=== PATIENT | male | born 2000 | race Caucasian/White ===

== ENCOUNTER 2025-04-10 21:51 | Emergency (ER) | payer OTHER, SELFPAY ==
--- OUTSIDE RECORDS SUMMARY | 2025-04-10 21:53 | XMS_ITS | Clinical Summary ---
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 Gender Identity Not on file Sexual Orientation Not on file Last Filed Vital Signs Vital Sign Reading Time Taken Comments Blood Pressure 128/74 07/07/2019 1:25 PM TECHNICAL SERVICES LIBRARIAN Pulse 68 05/11/2019 1:22 PM CDT Temperature - - Respiratory Rate 18 05/11/2019 1:22 PM CDT Oxygen Saturation - - Inhaled Oxygen Concentration - - Weight - - Height - - Body Mass Index - - Plan of Treatment Health Maintenance Due Date Last Done Comments Dental Oral Exam 1998 Dental Recall 1998 HIV Screening 1998 Hepatitis B Vaccine (2 of 3 - 3-dose series) 02/28/1999 01/31/1999 Varicella Vaccines (1 of 2 - 13+ 2-dose series) 2011 HPV Immunization (1 - Male 3-dose series) 2013 Pneumococcal Combined 0-50 (1 of 2 - PCV) 2017 Dental X-Ray: Bitewings 05/12/2020 05/11/2019 Periodontal Charting 07/08/2020 07/07/2019, 07/07/20 Dental X-Ray: Full Mouth 05/12/2022 05/11/2019 COVID-19 Vaccine ( - season) 2024 Influenza Vaccine (#1) 2025 07/26/2010, 2008 DTaP,Tdap,and Td Vaccines (7 - Td or Tdap) 07/16/2026 07/16/2016, 03/10/2003, 09/12/2000, Additional history exists Zoster Vaccines (1 of 2) 2048 RSV Vaccines (1 - 1-dose 75+ series) 2073 HIB Vaccines Completed 09/12/2000, 01/16, 1998 POLIO VACCINES Completed 03/10/2003, 08/19, 01/31/1999, Additional history exists MENINGOCOCCAL VACCINES (MCV4) Aged Out 07/26/2010 No longer eligible based on patient's age to complete this topic Hepatitis A Vaccines Aged Out No long er eligible based on patient's age to complete this topic MENINGOCOCCAL VACCINES (MenB) Aged Out No longer eligible based on patient's age to complete this topic ROTAVIRUS VACCINES Aged Out No longer eligible based on patient's age to complete this topic Procedures Procedure Name Priority Date/Time Associated Diagnosis Comments ME COMP PERIODONTAL EVALUATION Routine 07/07/2019 1:00 PM TECHNICAL SERVICES LIBRARIAN ME INTRAOR COMPLETE FILM SERIES Routine 05/11/2019 1:00 PM CDT from Last 3 Months or Most Recently Relevant to Health Maintenance Insurance [employer]
[2025-04-10 21:56] VITALS: BP 131/96; PULSE 87; RESP 16; TEMP 36.6; O2SAT 97; BMI 19.0
[2025-04-10 22:29] VITALS: TEMP 36.6
[2025-04-10] MEDS: IBUPROFEN 400 MG TABLET 800 MG PO (22:29)
[2025-04-10] MEDS: FLUORESCEIN SODIUM TOPICAL STRIP 1 STRIP EYE-RIGHT (22:32)
[2025-04-10] MEDS: TETRACAINE 0.5% OPHTH 2 DROP EYE-RIGHT (22:33)
--- NOTE | 2025-04-10 22:45 | ED.EYEPROB ---
HPI - Eye Problem General Date Seen: 04/10/25 Chief complaint: Eye Problems Stated complaint: right eye injury Time Seen by Provider: 04/10/25 21:59 Source: patient Mode of arrival: ambulatory Limitations: no limitations History of Present Illness HPI Narrative: Patient is a very nice 24-year-old gentleman who presents here E was fishing in town, and bent over to take a bluegill off of his lying, and somehow poked himself in the right eye with a stick. He presents here for help, is able to drive to the ER, was not wearing contacts and does not were glasses. 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 chief complaint: eye pain and eye injury Onset (ago): minute(s) Onset description: sudden Duration: constant Location: right eye Eye Symptoms: burning, foreign body sensation and photophobia Place: street/outdoors Mechanism: direct trauma Severity: moderate If Pain, Quality: sharp Associated symptoms: none Treatments Prior to Arrival: none Related Data Patient tetanus UTD: No Home Medications ?Medication ?Instructions ?Recorded ?Confirmed No Known Home Medications 04/10/25 04/10/25 Allergies Allergy/AdvReac Type Severity Reaction Status Date / Time No Known Drug Allergies Allergy Verified 04/10/25 21:58 Review of Systems Status of ROS: Reports: 10 or more systems reviewed and unremarkable except as noted in History and below [facility] Medical History No significant past medical history Surgical History No significant past surgical history Social History Smoking Status: Never smoker Second hand tobacco smoke exposure: No How often do you have a drink containing alcohol: never AUDIT-C Alcohol total score: 0 Non-prescribed substance use: denies use Exam Narrative: Exam Narrative: On examination in room 4 he is pleasant he 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 Extraocular muscles are normal there is no lid swelling notable there is no foreign body noted. And I really see any evidence of open globe injury, no evidence of a hyphema. Tetracaine drops are used 2 drops in his right eye this helped his pain immensely, floor seen shows that he has a scratch across is high from 11 o'clock position to 5 o'clock position. There is no flap associated this in no gathering a for seen within it. Upper lid is everted and normal lower lid but lid is swept and normal. With no evidence of foreign body. He scores 20/30 both eyes when checked. Slit lamp was used Const: Vital Signs, click to edit/add: Vital Signs - 24 hr 04/10/25 21:56 04/10/25 22:29 Temperature 97.8 F 97.8 F Pulse Rate [Pulse Oximeter] 87 Respiratory Rate 16 Blood Pressure [Le ft Upper Arm] 131/96 H Pulse Oximetry 97 Oxygen Delivery Me thod Room Air Documenting provider has reviewed patient's vital signs: yes Course Vital Signs Vital signs: Initial Vital Signs Temperature 97.8 F 04/10/25 21:56 Temperature Source Temporal Artery Scan 04/10/25 21:56 Pulse Rate 87 04/10/25 21:56 Respiratory Rate 16 04/10/25 21:56 Blood Pressure 131/96 H 04/10/25 21:56 Blood Pressure Mean 107 H 04/10/25 21:56 Blood Pressure Position Sitting 04/10/25 21:56 Pulse Oximetry 97 04/10/25 21:56 Oxygen Delivery Method Room Air 04/10/25 21:56 Vital Signs Temperature 97.8 F 04/10/25 21:56 Pulse Rate 87 04/10/25 21:56 Respiratory Rate 16 04/10/25 21:56 Blood Pressure 131/96 H 04/10/25 21:56 Pulse Oximetry 97 04/10/25 21:56 Oxygen Delivery Method Room Air 04/10/25 21:56 Temperature 97.8 F 04/10/25 22:29 Pulse Rate 87 04/10/25 21:56 Respiratory Rate 16 04/10/25 21:56 Blood Pressure 131/96 H 04/10/25 21:56 Pulse Oximetry 97 04/10/25 21:56 Oxygen Delivery Method Room Air 04/10/25 21:56 Medications Administered Medications: Discontinued Medications Generic Name Dose Route Start Last Admin Trade Name Freq PRN Reason Stop Dose Admin Fluorescein Sodium 1 strip 04/10/25 22:21 04/10/25 22:32 Fluorescein Sodium Topical Strip EYE-RIGHT 04/10/25 22:22 1 strip ONCE ONE Administration Ibuprofen 800 mg 04/10/25 22:20 04/10/25 22:29 Ibuprofen 400 Mg Tablet PO 04/10/25 22:21 400 mg ONCE ONE Administration Tetracaine HCl 2 drop 04/10/25 22:21 04/10/25 22:33 Tetracaine 0.5% Ophth EYE-RIGHT 04/10/25 22:22 2 drop ONCE ONE Administration MDM - Eye Problem MDM Narrative Medical decision making narrative: During this evaluation I considered multiple issues and possible diagnosis is such as open globe injury, hyphema, corneal abrasion, foreign body within the the cornea, opening closed angle glaucoma, iritis, alkali or acid injury Differential Diagnosis Differential diagnosis: Likely corneal abrasion, conjunctivitis, acute iritis, hyphema, periorbital cellulitis, subconjunctival hemorrhage, glaucoma and ruptured globe Discharge Plan Discharge Clinical Impression: Corneal abrasion Patient Disposition: Home, Self-Care Condition: Stable Instructions: Corneal Abrasion (DC) Additional Instructions: Home rest use of ibuprofen 800 mg by mouth 3 times a day, sunglasses will be needed during the day, he should be significantly better tomorrow, please spanish moss picker the eyedrops from the machine for antibiotics to make sure there is no infection, if you not significantly better tomorrow I would make an appointment to see an mailroom supervisor, as they have some better grade equipment to get your eye checked, should not be driving tomorrow as her depth perception be off. Activity Level: Light activity Prescriptions: No Action No Known Home Medications Stand Alone Forms: Work/School Release, [facility] Info Instructions
[2025-04-10] MEDS: TETANUS/DIPHTH/PERTUSSIS 0.5 ML SYRINGE IM (22:46)
[2025-04-10 22:50] VITALS: BP 125/75; PULSE 81; RESP 16; TEMP 36.6; O2SAT 97
--- OUTSIDE RECORDS SUMMARY | 2025-04-10 22:57 | XMS_ITS | Clinical Summary ---
Author Organization [facility] Address [address] [place] [id number] Care Team Providers Care Rn Patient Care Name Role Phone Pcp, No Primary Care Provider Unavailabl e Allergies No known active allergies Medications No known medications Active Problems No known active problems Family History Medical History Relation Name Comments Depression Father Hypertension Father Lung cancer Maternal Grandmother Depression Mother Skin cancer Mother non melanoma Hypertension Paternal Grandmother Relation Name Status Comments Father Maternal Grandmother Mother Paternal Grandmother Social History Tobacco Use Types Packs/Day Years Used Date Smoking Tobacco: Former Cigarettes 1 - 05/28/2018 Smokeless Tobacco: Former Chew Quit: 05/28/2018 Tobacco Cessation:Counseling Given: Yes Alcohol Use Standard Drinks/Week Comments Yes 0 (1 standard drink = 0.6 oz pur e alcohol) occassioanlly Social Connections Answer Date Recorded Frequency of Communication with Friends and Fami ly Not on file 08/18/2021 Financial Resource Strain Answer Date R ecorded Difficulty of Paying Living Expenses Not on file 08/18/2021 Difficulty of Paying Living Expenses Not on file 08/18/2021 Sex and Gender Information Value Date Recorded Sex Assigned at Not on file Legal Sex Male 8:52 AM CDT Gender Identity Not on file Sexual Orientation Not on file Obstetrics History Last Filed Vital Signs Vital Sign Reading Time Taken Comments Blood Pressure 120/81 06/28/2021 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 Pulse 75 06/28/2021 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 Temperature - - Respiratory Rate - - Oxygen Saturation 99% 06/28/2021 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 Inhaled Oxygen Concentration - - Weight 61.5 kg (135 lb 9.6 oz) 06/28/2021 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 Height - - Body Mass Index - - Plan of Treatment Health Maintenance Due Date Last Done Comments Tetanus booster 2009 Depression screening for age 12+ 2010 HIV for age 15-65 2013 HPV series for age 9-26 (1 - Male 3-dose series) 2013 BMI (ht and wt on same day) for age 18+ 2016 Hepatitis C screening for ag e 18-79 2016 Hepatitis B series for 19+ ( 1 of 3 - 19+ 3-dose series) 2017 COVID-19 vaccine series ( - 2023- season) 2024 Influenza Vaccine (#1) 2025 Pneumococcal series for age 6-49 Aged Out No longer eligible based on patient's age to complete this topic Care Teams Rn Patient Care Relationship Specialty Start Date End Date Pcp, No . PCP - General 05/24/21
[2025-04-10 23:04] VITALS: BP 125/75; PULSE 81; RESP 16; TEMP 36.6
== END 2025-04-10 23:08 | disposition home or self-care (01) ==
LOC: ED 22:55
PROVIDERS: Emergency Provider Family Medicine
DX: S05.01XA Injury of conjunctiva and corneal abrasion without foreign body, right eye, initial encounter (principal); Z23 Encounter for immunization
CPT/HCPCS: 90471; 90715; 99283; 99284; A9270